=== PATIENT | male | born 1960 | race Two or more races ===

== ENCOUNTER 2025-01-12 11:05 | Inpatient (IN) | payer OTHER ==
[~2025-01-12] VITALS: Ht 274.3 cm; Wt 86.6 kg
[2025-01-12] MEDS ORDERED: NORVASC10 MG PO (11:43)
[2025-01-12] MEDS ORDERED: LOSARTAN-HCTZ1 EAC1 PO (11:43)
[2025-01-20] MEDS ORDERED: BUPIVACAINE HCL 30 ML VIAL IJ ONE (08:30)
[2025-01-20] MEDS ORDERED: CEFTRIAXONE SODIUM 2,000 MG VIAL IV ONE (08:30)
[2025-01-20] MEDS ORDERED: METRONIDAZOLE/SODIUM CHLORIDE 500 MG/100 ML PIGGYBACK IV ONE (08:30)
[2025-01-20] MEDS ORDERED: LIDOCAINE HCL 1%/EPINEPHRINE 20ML VIAL IJ ONE (08:30)
[2025-01-20] MEDS ORDERED: MORPHINE SULFATE 4 MG/ML CARTRIDGE IV PRN (09:30)
[2025-01-20] MEDS ORDERED: DEXTROSE 50 % IN WATER 0.5 G/ML DISP.SYRIN IV PRN (09:30)
[2025-01-20] MEDS ORDERED: RINGERS SOLUTION,LACTATED 1,000 ML IV SCH (09:30)
[2025-01-20] MEDS ORDERED: ONDANSETRON HCL 2 MG/ML VIAL IV PRN (09:30)
[2025-01-20] MEDS ORDERED: OxyCODONE HCL 5 MG TABLET (ROXICODONE) PO PRN (09:30)
[2025-01-20] MEDS ORDERED: MORPHINE SULFATE 4 MG/ML VIAL IV ONE ×2 (10:20→11:45)
[2025-01-20] MEDS ORDERED: SUGAMMADEX SODIUM 200 MG/2 ML VIAL IV ONE (11:00)
[2025-01-20 12:21] LABS: HEMATOCRIT 43.1 % (39.0-48.0); HEMOGLOBIN 14.5 g/dL (13-16.00); MEAN CELL VOLUME 89.4 fL (80.0-100.00); MEAN CORPUSCULAR HGB CONC 33.6 g/dl (32.0-36.0); PLATELET COUNT 257 K/uL (150-450); RED BLOOD COUNT 4.82 M/uL (4.00-6.00); RED CELL DISTRIBUTION WIDTH 13.2 % (11.5-14.5)
[2025-01-20 12:30] VITALS: BP 173/89; O2SAT 97
[2025-01-20] MEDS ORDERED: ACETAMINOPHEN 500 MG GEL..CAP PO SCH (14:00)
[2025-01-20] MEDS ORDERED: ENALAPRILAT DIHYDRATE 1.25 MG/ML VIAL IV PRN (16:00)
[2025-01-20 16:06] VITALS: BP 168/89; O2SAT 97
[2025-01-20] MEDS ORDERED: HYOSCYAMINE SULFATE 0.125 MG TAB.SUBL SL SCH (17:00)
[2025-01-20] MEDS ORDERED: METOCLOPRAMIDE HCL 5 MG/ML VIAL IV SCH (17:00)
[2025-01-20] MEDS ORDERED: POLYETHYLENE GLYCOL 3350 17 GM BLIST.PACK PO SCH (17:00)
[2025-01-20] MEDS ORDERED: CELECOXIB 200 MG CAPSULE PO SCH (17:00)
[2025-01-20] MEDS ORDERED: GABAPENTIN 300 MG CAPSULE PO SCH (17:00)
[2025-01-20] MEDS ORDERED: SIMETHICONE 125 MG CAPSULE PO SCH (17:00)
[2025-01-20] MEDS ORDERED: FAMOTIDINE/PF 20 MG/2 ML VIAL IV PUSH SCH (21:00)
[2025-01-20 21:19] VITALS: BP 137/78; O2SAT 96
[2025-01-21] VITALS: BP 118/69; O2SAT 95
[2025-01-21 07:31] LABS: HEMATOCRIT 42.8 % (39.0-48.0); HEMOGLOBIN 15.1 g/dL (13-16.00); MEAN CELL VOLUME 86.4 fL (80.0-100.00); MEAN CORPUSCULAR HEMOGLOBIN 30.4 pg (27.00-32.0); MEAN CORPUSCULAR HGB CONC 35.2 g/dl (32.0-36.0); PLATELET COUNT 235 K/uL (150-450); RED BLOOD COUNT 4.96 M/uL (4.00-6.00); RED CELL DISTRIBUTION WIDTH 13.6 % (11.5-14.5)
[2025-01-21 08:02] LABS: ALBUMIN 3.6 gm/dL (3.4-5.0); CALCIUM 8.7 mg/dL (8.5-10.1); CREATININE SERUM 1.44 mg/dL (0.70-1.30); GFR 49.08; POTASSIUM 3.49 mEq/L (3.5-5.1)
[2025-01-21] MEDS ORDERED: LACTULOSE 20 G/30 ML BLIST.PACK PO SCH (09:00)
[2025-01-21] MEDS ORDERED: LACTOBACILLUS ACIDOPHILUS 1 CAP CAP PO SCH (09:00)
[2025-01-21 11:08] VITALS: BP 136/74; O2SAT 99
[2025-01-21] MEDS ORDERED: ENOXAPARIN SODIUM 40 MG/0.4 ML SYRINGE SUBCUTANEO SCH (17:00)
[2025-01-22 00:36] VITALS: BP 138/82; O2SAT 95
[2025-01-22 08:00] VITALS: BP 149/91; O2SAT 99
[2025-01-22] MEDS ORDERED: ENOXAPARIN SODIUM 40 MG/0.4 ML SYRINGE SUBCUTANEO SCH (09:00)
[2025-01-22 10:16] LABS: HEMATOCRIT 43.9 % (39.0-48.0); HEMOGLOBIN 14.9 g/dL (13-16.00); MEAN CELL VOLUME 88.6 fL (80.0-100.00); MEAN CORPUSCULAR HGB CONC 33.9 g/dl (32.0-36.0); PLATELET COUNT 240 K/uL (150-450); RED BLOOD COUNT 4.96 M/uL (4.00-6.00); RED CELL DISTRIBUTION WIDTH 13.1 % (11.5-14.5)
[2025-01-22 11:02] LABS: CREATININE SERUM 1.19 mg/dL (0.70-1.30); GFR 61.16; POTASSIUM 3.6 mEq/L (3.5-5.1)
[2025-01-22 16:18] VITALS: BP 150/84; O2SAT 97
== END 2025-01-22 19:17 | disposition home or self-care (01) | DRG 334 ==
LOC: SURG 01-20 05:00 → O/R 01-20 05:00 → SURH 01-20 07:00 → SURG 01-20 13:40
PROVIDERS: Internal Medicine; ADMIT Colon & Rectal Surgery; ATTEND Colon & Rectal Surgery
PROC: 07BC4ZX Excision of Pelvis Lymphatic, Percutaneous Endoscopic Approach, Diagnostic (ICD-10-PCS; 2025-01-20)
PROC: 0DBP4ZZ Excision of Rectum, Percutaneous Endoscopic Approach (ICD-10-PCS; principal; 2025-01-20 07:00)
DX: C20 Malignant neoplasm of rectum (principal)

== ENCOUNTER 2025-07-27 12:30 | Inpatient (IN) | payer OTHER ==
[~2025-07-27] VITALS: Ht 274.3 cm; Wt 83.5 kg
[~2025-07-27 12:30] MED LIST: LOSARTAN-HCTZ1 EAC1 PO; NORVASC10 MG PO
[2025-07-27] MEDS ORDERED: EZALLOR SPRINKL10 MG PO (14:33)
[2025-08-03] MEDS ORDERED: CEFTRIAXONE SODIUM 2,000 MG VIAL ONE (12:09)
[2025-08-03] MEDS ORDERED: METRONIDAZOLE/SODIUM CHLORIDE 500 MG/100 ML PIGGYBACK IV ONE (12:09)
[2025-08-03] MEDS ORDERED: BUPIVACAINE HCL/PF 0.25% 30ML VIAL InF ONE (13:30)
[2025-08-03] MEDS ORDERED: CEFTRIAXONE SODIUM 2,000 MG VIAL IV ONE (13:30)
[2025-08-03] MEDS ORDERED: LIDOCAINE HCL 1%/EPINEPHRINE 20ML VIAL IJ ONE (13:45)
[2025-08-03] MEDS ORDERED: MORPHINE SULFATE 4 MG/ML CARTRIDGE IV PRN (14:30)
[2025-08-03] MEDS ORDERED: RINGERS SOLUTION,LACTATED 1,000 ML IV SCH (14:30)
[2025-08-03] MEDS ORDERED: ONDANSETRON HCL 2 MG/ML VIAL IV PRN (14:30)
[2025-08-03] MEDS ORDERED: OxyCODONE HCL 5 MG TABLET (ROXICODONE) PO PRN (14:30)
[2025-08-03] MEDS ORDERED: HYOSCYAMINE SULFATE 0.125 MG TAB.SUBL SL SCH (17:00)
[2025-08-03] MEDS ORDERED: METOCLOPRAMIDE HCL 5 MG/ML VIAL IV SCH (17:00)
[2025-08-03] MEDS ORDERED: GABAPENTIN 300 MG CAPSULE PO SCH (17:00)
[2025-08-03] MEDS ORDERED: CELECOXIB 200 MG CAPSULE PO SCH (17:00)
[2025-08-03] MEDS ORDERED: ACETAMINOPHEN 500 MG GEL..CAP PO SCH (20:00)
[2025-08-03] MEDS ORDERED: FAMOTIDINE/PF 20 MG/2 ML VIAL ONE (20:54)
[2025-08-03] MEDS ORDERED: FAMOTIDINE/PF 20 MG/2 ML VIAL IV PUSH SCH (21:00)
[2025-08-03 21:17] VITALS: BP 120/77; O2SAT 94
[2025-08-03 21:30] LABS: BASO % 0.3 % (0.1-1.2); EOS # 0.00 (0.04-0.54); EOS % 0.0 % (0.7-7.0); LYMPH # 0.44 (1.18-3.74); LYMPH % 2.8 % (19.3-53.1); MEAN PLATELET VOLUME 8.90 fl (9.4-12.4); MONO # 0.74 (0.24-0.82); MONO % 4.8 % (4.7-12.5); NEUT # 14.29 (1.56-6.13); NEUT % 91.8 % (34.0-71.1); RED CELL DISTRIBUTION WIDTH 11.9 % (11.6-14.4)
[2025-08-03 21:43] LABS: BUN CREA RATIO 14.0 (7.0-25.0); CREATININE SERUM 1.18 mg/dL (0.70-1.30); GFR 61.57; GLUCOSE FASTING 142.0 mg/dL (65-100); OSMOLALITY SERUM 281.0 MOSM/KG (275-295)
[2025-08-04] VITALS: BP 123/71; O2SAT 95
[2025-08-04 06:44] LABS: BASO % 0.3 % (0.1-1.2); EOS # 0.00 (0.04-0.54); EOS % 0.0 % (0.7-7.0); LYMPH # 0.68 (1.18-3.74); LYMPH % 5.7 % (19.3-53.1); MEAN PLATELET VOLUME 9.30 fl (9.4-12.4); MONO # 0.78 (0.24-0.82); MONO % 6.5 % (4.7-12.5); NEUT # 10.38 (1.56-6.13); NEUT % 87.2 % (34.0-71.1); RED CELL DISTRIBUTION WIDTH 11.8 % (11.6-14.4)
[2025-08-04 07:20] LABS: BUN CREA RATIO 16.0 (7.0-25.0); CREATININE SERUM 1.09 mg/dL (0.70-1.30); GFR 67.47; GLUCOSE FASTING 106.0 mg/dL (65-100); OSMOLALITY SERUM 279.0 MOSM/KG (275-295)
[2025-08-04 08:00] VITALS: BP 133/75; O2SAT 95
[2025-08-04] MEDS ORDERED: LACTOBACILLUS ACIDOPHILUS 1 CAP CAP PO SCH (09:00)
[2025-08-04 15:30] VITALS: BP 137/76; O2SAT 95
[2025-08-04] MEDS ORDERED: ENOXAPARIN SODIUM 40 MG/0.4 ML SYRINGE SUBCUTANEO SCH (17:00)
[2025-08-05 01:11] VITALS: BP 137/79; O2SAT 99
[2025-08-05 06:47] LABS: BASO % 0.5 % (0.1-1.2); EOS # 0.21 (0.04-0.54); EOS % 2.6 % (0.7-7.0); LYMPH # 0.69 (1.18-3.74); LYMPH % 8.7 % (19.3-53.1); MEAN PLATELET VOLUME 9.30 fl (9.4-12.4); MONO # 0.64 (0.24-0.82); MONO % 8.1 % (4.7-12.5); NEUT # 6.32 (1.56-6.13); NEUT % 79.7 % (34.0-71.1); RED CELL DISTRIBUTION WIDTH 12.0 % (11.6-14.4)
[2025-08-05 07:18] LABS: BUN CREA RATIO 11.0 (7.0-25.0); CREATININE SERUM 1.0 mg/dL (0.70-1.30); GFR 74.53; GLUCOSE FASTING 106.0 mg/dL (65-100); OSMOLALITY SERUM 285.0 MOSM/KG (275-295)
[2025-08-05 08:53] VITALS: BP 123/80; O2SAT 98
[2025-08-05] MEDS ORDERED: ENOXAPARIN SODIUM 40 MG/0.4 ML SYRINGE SUBCUTANEO SCH (09:00)
== END 2025-08-05 12:14 | disposition home or self-care (01) | DRG 330 ==
LOC: O/R 08-03 09:00 → SURG 08-03 09:00
PROVIDERS: ADMIT Colon & Rectal Surgery; ATTEND Colon & Rectal Surgery
PROC: 0DBE4ZZ Excision of Large Intestine, Percutaneous Endoscopic Approach (ICD-10-PCS; principal; 2025-08-03 19:00)
DX: Z43.3 Encounter for attention to colostomy (principal); C20 Malignant neoplasm of rectum; Z85.048 Personal history of other malignant neoplasm of rectum, rectosigmoid junction, and anus